=== PATIENT | female | born 1975 | race Caucasian/White ===

== ENCOUNTER 2017-06-02 15:38 | Observation (INO) | payer SELFPAY ==
[2017-06-02] VITALS (7 sets, daily range): BP systolic 100–135; BP diastolic 54–78; PULSE 61–72; RESP 16–18; TEMP 98.6; O2SAT 96–100
[~2017-06-02] VITALS: Ht 177.8 cm; Wt 125.0 kg
--- NOTE | 2017-06-02 15:54 | PD ---
Physical Exam Date Seen by Provider: Jun 02, 2017 Time Seen by Provider: 15:50 Narrative 41 YOWF C/O CP X 1WEEK. WORSE TODAY. STABBING IN THE BACK THROUGH TO THE CHEST. POS SOB, NAUSEA NO VOMITING. PAIN 9/10. H/O ANXIETY OUT OF CLON[place]APAM VS REVIEWED AWAITING BED PLACEMENT Data Data Last Documented VS Vital Signs Date Time Temp Pulse Resp B/P Pulse Ox O2 Delivery O2 Flow Rate FiO2 06/02/17 15:39 98.6 72 18 135/60 99 Room Air MDM Supervised Visit with GOLD: Antonio Merida Jun 02, 2017 15:54
[2017-06-02] MEDS ORDERED: SODIUM CHLORIDE 0.9% FLUSH 10 ML FLUSH IVF PRN (20:45)
[2017-06-02] MEDS ORDERED: ASPIRIN 81 MG CHEW TAB PO ONE (20:45)
--- NOTE | 2017-06-02 21:06 | RADRPT ---
EXAM DATE/TIME: 06/02/2017 20:58 [facility] COMPARISON: No previous studies available for comparison. INDICATIONS : Chest pain. MEDICAL HISTORY : None. SURGICAL HISTORY : None. ENCOUNTER: Initial ACUITY: 1 day PAIN SCORE: 8/10 LOCATION: Bilateral chest FINDINGS: A single view of the chest demonstrates the lungs to be symmetrically aerated without evidence of mas s, infiltrate or effusion. The cardiomediastinal contours are unremarkable. Osseous structures are intact. CONCLUSION: No evidence of acute cardiopulmonary disease. Regis Damian MD on June 02, 2017 at 21:04 Board Certified Radiologist. This report was verified electronically.
--- NOTE | 2017-06-02 21:16 | PD ---
HPI Chief Complaint: Chest Pain Time Seen by Provider: 20:44 Travel History International Travel<30 days: No Contact w/Intl Traveler<30days: No Traveled to known affect area: No History of Present Illness HPI 41-year-old female presents to the emergency department for evaluation and midsternal chest pain that started approximately a week ago, but worsened today around noon. Patient states it radiates to her back, neck, right arm. She states it is worse with deep breathing, movement, palpation. Patient states that she was seen in a hospital in [facility] approximately 6 months to one year ago and had a cardiac catheter at that time. She states she was diagnosed with coronary artery disease, but does not know any other findings with the cardiac catheterization. She has not followed up with a brand strategist due to be incarcerated. She states she was released from [facility] approximately 2 months ago. She does report history of bipolar, anxiety. She is not currently on any prescribed medications. Patient denies any recent surgery or travel. No history of cancer. No hemoptysis. She is not on control pills. No history DVT or PE. PFSH Past Medical History Bipolar Disorder: Yes Cardiac Catheterization: Yes Coronary Artery Disease: Yes Diminished Hearing: No Medical other: Yes (TUBAL LIGATION) Psychiatric: Yes (BIPOLAR) Reproductive: Yes (ENDOMETRIOSIS) Tetanus Vaccination: > 5 Years ?: Not LMP: 04/2017 Past Surgical History Gynecologic Surgery: Yes Social History Alcohol Use: No Tobacco Use: Yes Substance Use: No Allergies-Medications (Allergen,Severity, Reaction): Coded Allergies: Sulfa (Sulfonamide Antibiotics) (Verified Allergy, Severe, HIVES, 06/02/17) pseudoephedrine (Verified Allergy, Severe, HIVES, 06/02/17) triprolidine (Verified Allergy, Severe, HIVES, 06/02/17) Reported Meds & Prescriptions Reported Meds & Active Scripts Active No Active Prescriptions or Reported Medications Review of Systems Except as stated in HPI: all other systems reviewed are Neg Physical Exam Narrative GENERAL: Well-nourished, well-developed female patient, afebrile. SKIN: Focused skin assessment warm/dry. HEAD: Normocephalic. Atraumatic. EYES: No scleral icterus. No injection or drainage. NECK: Supple, trachea midline. No JVD or lymphadenopathy. CARDIOVASCULAR: Regular rate and rhythm without murmurs, gallops, or rubs. RESPIRATORY: Breath sounds equal bilaterally. No accessory muscle use. Lungs sounds are clear to auscultation. GASTROINTESTINAL: Abdomen soft, non-tender, nondistended. MUSCULOSKELETAL: No cyanosis, or edema. Midsternal chest pain is reproducible with palpation. BACK: Nontender without obvious deformity. No CVA tenderness. Data Data Last Documented VS Vital Signs Date Time Temp Pulse Resp B/P Pulse Ox O2 Delivery O2 Flow Rate FiO2 06/02/17 22:13 68 18 109/73 96 Room Air 06/02/17 15:39 98.6 Orders Electrocardiogram (06/02/17 ) Electrocardiogram (06/02/17 20:43) Basic Metabolic Panel (Bmp) (06/02/17 20:43) Ckmb (Isoenzyme) Profile (06/02/17 20:43) Complete Blood Count With Diff (06/02/17 20:43) Magnesium (Mg) (06/02/17 20:43) Prothrombin Time / Inr (Pt) (06/02/17 20:43) Act Partial Throm Time (Ptt) (06/02/17 20:43) Troponin I (06/02/17 20:43) Chest, Single Ap (06/02/17 20:43) Ecg Monitoring (06/02/17 20:43) Bilateral Bp Monitoring (06/02/17 20:43) Iv Access Insert/Monitor (06/02/17 20:43) Oximetry (06/02/17 20:43) Oxygen Administration (06/02/17 20:43) Aspirin Chew (Aspirin Chew) (06/02/17 20:45) Sodium Chloride 0.9% Flush (Ns Flush) (06/02/17 20:45) Ed Urine Pregnancytest Poc (06/02/17 20:43) CKMB (06/02/17 20:50) CKMB% (06/02/17 20:50) Admit Order (Ed Use Only) (06/02/17 22:57) Labs Laboratory Tests Test 06/02/17 20:50 Prothrombin Time 10.8 SEC Prothromb Time International 1.0 RATIO Ratio Activated Partial 25.3 SEC Thromboplast Time Sodium Level 135 MEQ/L Potassium Level 4.8 MEQ/L Chloride Level 106 MEQ/L Carbon Dioxide Level 25.5 MEQ/L Anion Gap 4 MEQ/L Blood Urea Nitrogen 12 MG/DL Creatinine 1.01 MG/DL Estimat Glomerular Filtration 61 ML/MIN Rate Random Glucose 145 MG/DL Calcium Level 8.2 MG/DL Magnesium Level 2.0 MG/DL Total Creatine Kinase 147 U/L Creatine Kinase MB 0.7 NG/ML Troponin I LESS THAN 0.02 NG/ML MDM Medical Decision Making Medical Screen Exam Complete: Yes Emergency Medical Condition: Yes Medical Record Reviewed: Yes Interpretation(s) Last Impressions Chest X-Ray 06/02/172042 Signed Impressions: Service Date/Time: Friday, June 02, 2017 20:58 - CONCLUSION: No evidence of acute cardiopulmonary disease. Regis Damian MD Differential Diagnosis ACS versus chest wall pain versus pleurisy versus anxiety Narrative Course 41-year-old female presents to the emergency department for evaluation of chest pains ongoing for a week, but worsened today. Patient reports cardiac catheterization approximately 6 months to one year ago. I will attempt to obtain these records. EKG shows sinus rhythm, heart rate 73, no acute ST changes. CBC, BMP, magnesium, CK, troponin, PTT, PT/INR, chest x-ray are ordered and pending. BMP shows no acute abnormality. Magnesium is 2.0. CK is 147. Troponin is less than 0.02. Coags are unremarkable. Chest x-ray shows no evidence of acute cardiopulmonary disease. We attempted to obtain records from previous hospital. However, they have no record of the patient being at the hospital. Patient is admitted to the [facility] for further evaluation. Diagnosis Primary Impression: Chest pain Qualified Code: R07.9 - Chest pain, unspecified type Admitting Information Admitting Physician Requests: Observation Scripts No Active Prescriptions or Reported Meds Marimar Delcid Jun 02, 2017 21:15
[2017-06-02 21:50] LABS: ANION GAP 4 MEQ/L (5-15); BICARBONATE 25.5 MEQ/L (21.0-32.0); BLOOD UREA NITROGEN 12 MG/DL (7-18); CHLORIDE 106 MEQ/L (98-107); CREATINE KINASE 147 U/L (26-192); GLOMERULAR FILTRATION RATE 61 ML/MIN (>89); POTASSIUM 4.8 MEQ/L (3.5-5.1); SODIUM (NA) 135 MEQ/L (136-145)
[2017-06-02 22:02] LABS: CKMB 0.7 NG/ML (0.5-3.6)
[2017-06-02 22:20] LABS: APTT (PATIENT) 25.3 SEC (24.3-30.1); PROTHROMBIN TIME - PATIENT 10.8 SEC (9.8-11.6)
[2017-06-02] MEDS ORDERED: SODIUM CHLORIDE 0.9% FLUSH 10 ML FLUSH IV FLUSH PRN (23:00)
[2017-06-02 23:03] LABS: AUTOMATED NEUTROPHIL # 3.4 TH/MM3 (1.8-7.7); BASOPHIL # 0.1 TH/MM3 (0-0.2); BASOPHIL % 0.7 % (0.0-2.0); EOSINOPHIL # 0.4 TH/MM3 (0-0.4); EOSINOPHIL % 5.4 % (0.0-4.0); HEMATOCRIT 36.8 % (35.0-46.0); LYMPH % 39.3 % (9.0-44.0); LYMPHOCYTE # 2.6 TH/MM3 (1.0-4.8); MEAN CELL VOLUME 93.5 FL (80.0-100.0); MEAN CORPUSCULAR HEMOGLOBIN 31.8 PG (27.0-34.0); MONO % 4.6 % (0.0-8.0); PLATELET COUNT 80 TH/MM3 (150-450); RED BLOOD COUNT 3.93 MIL/MM3 (4.00-5.30); RED CELL DISTRIBUTION WIDTH 14.6 % (11.6-17.2); WHITE BLOOD COUNT 6.7 TH/MM3 (4.0-11.0)
[2017-06-02 23:12] LABS: HEMO FLAGS AUTO DIFF
--- NOTE | 2017-06-03 00:36 | EKG ---
Date Performed: 06/02/2017 Time Performed: 15:45:38 PTAGE: 41 years EKG: Sinus rhythm POSSIBLE RIGHT VENTRICULAR CONDUCTION DELAY BORDERLINE ECG NO PREVIOUS TRACING DOCTOR: Juan Jose Bautista Interpretating Date/Time 06/03/2017 00:35:56
[2017-06-03 00:46] VITALS: PULSE 73
[2017-06-03 00:48] LABS: CREATINE KINASE 78 U/L (26-192)
[2017-06-03 00:56] LABS: PLATELET ESTIMATE SMEAR LOW (NORMAL); PLATELET MORPHOLOGY NORMAL (NORMAL); SCAN/DIFF AUTO DIFF CONFIRMED
[2017-06-03 03:39] LABS: CREATINE KINASE 78 U/L (26-192)
[2017-06-03 03:47] VITALS: BP 110/52; PULSE 63; RESP 18; TEMP 98.4; O2SAT 97
[2017-06-03 03:55] VITALS: PULSE 58
[2017-06-03 07:48] VITALS: PULSE 59
[2017-06-03 08:14] VITALS: BP 109/63; PULSE 67; RESP 20; TEMP 97.8; O2SAT 95
[2017-06-03] MEDS ORDERED: SODIUM CHLORIDE 0.9% FLUSH 10 ML FLUSH IV FLUSH SCH (09:00)
--- NOTE | 2017-06-03 10:54 | HHI.HP ---
HPI Primary Care Physician No Primary Care Physician Chief Complaint Chest pain History of Present Illness Ms. Banegas is a 41-year-old female patient with a known medical history of bipolar disorder and CAD who presented to the ED with complaints of chest pain. Patient states that about a week ago she noticed an intermittent, pressure-like and sharp pain in her midsternal chest area that has been present since. She noticed the pain worsen yesterday afternoon and characterized as a stabbing and twisting sensation that was in her midsternal area and radiated to her back. Does admit to associated shortness of breath and headache. Patient states that this pain was intermittent and lasted roughly 12 hours. Patient currently complains of chest soreness but pain has subsided. Pain somewhat reproducible to palpation. Aggravating factors include increased movement and breathing. She does state that she had an abnormal stress test and cardiac catheterization 1 year ago and required no intervention or stent placement at the time. Patient was diagnosed with CAD and per patient was not placed on any new cardiac medications. Since her cardiac catheterization she has not followed up with a PCP or scaffolding helper due to being incarcerated. Records have been obtained of prior cardiac catheterization. Review of Systems Respiratory: COMPLAINS OF: Shortness of breath Cardiovascular: COMPLAINS OF: Chest pain Past Family Social History Allergies: Coded Allergies: Sulfa (Sulfonamide Antibiotics) (Verified Allergy, Severe, HIVES, 06/02/17) pseudoephedrine (Verified Allergy, Severe, HIVES, 06/02/17) triprolidine (Verified Allergy, Severe, HIVES, 06/02/17) Past Medical History Bipolar disorder CAD Endometriosis Past Surgical History Tubal ligation Reported Medications Reported Meds & Active Scripts Active No Active Prescriptions or Reported Medications Active Ordered Medications Current Medications Medications (Trade) Dose Ordered Sig/Andrew Route Start Time Stop Time Status Last Admin (NS Flush) 2 ml UNSCH PRN IV FLUSH 06/02/17 23:00 (NS Flush) 2 ml BID IV FLUSH 06/03/17 09:00 Family History Patient cannot recall any significant family medical history of cardiovascular disease. Social History Patient states she has been smoking 1 ppd for the last 7 months. Denies any alcohol use. Denies any illicit drug use. Physical Exam Vital Signs Vital Signs Date Time Temp Pulse Resp B/P Pulse Ox O2 Delivery O2 Flow Rate FiO2 06/03/17 08:14 97.8 67 20 109/63 95 06/03/17 03:55 58 06/03/17 03:47 98.4 63 18 110/52 97 06/03/17 00:46 73 06/02/17 23:52 62 16 108/59 99 Room Air 06/02/17 23:06 21 06/02/17 22:13 68 18 109/73 96 Room Air 06/02/17 21:40 100 Room Air 06/02/17 21:30 66 18 100/78 100 Room Air 06/02/17 21:00 61 18 110/54 100 Room Air 06/02/17 20:49 18 100 Room Air 06/02/17 20:46 72 18 117/57 100 Room Air 06/02/17 20:45 100 Room Air 06/02/17 15:39 98.6 72 18 135/60 99 Room Air Physical Exam GENERAL: Well-developed, well-nourished female patient lying in bed in no apparent distress. SKIN: Warm and dry. No rash. Multiple tattoos noted. HEAD: Atraumatic. Normocephalic. EYES: Pupils equal and round. No scleral icterus. No injection or drainage. ENT: No nasal bleeding or discharge. Mucous membranes pink and moist. NECK: Trachea midline. No JVD. CARDIOVASCULAR: Regular rate and rhythm. No murmur appreciated. S1 and S2 present. RESPIRATORY: No accessory muscle use. Wheezing in bilateral lower lobes. Breath sounds equal bilaterally. GASTROINTESTINAL: Abdomen soft, non-tender, nondistended. MUSCULOSKELETAL: Extremities without clubbing, cyanosis, or edema. No obvious deformities. NEUROLOGICAL: Awake and alert. No obvious cranial nerve deficits. Motor grossly within normal limits. Five out of 5 muscle strength in the arms and legs. Normal speech. PSYCHIATRIC: Appropriate mood and affect; insight and judgment normal. Laboratory Laboratory Tests Test 06/02/17 06/02/17 06/02/17 06/03/17 20:50 21:50 23:40 02:50 Prothrombin Time 10.8 Prothromb Time International 1.0 Ratio Activated Partial 25.3 Thromboplast Time Sodium Level 135 Potassium Level 4.8 Chloride Level 106 Carbon Dioxide Level 25.5 Anion Gap 4 Blood Urea Nitrogen 12 Creatinine 1.01 Estimat Glomerular Filtration 61 Rate Random Glucose 145 Calcium Level 8.2 Magnesium Level 2.0 Total Creatine Kinase 147 78 78 Creatine Kinase MB 0.7 Troponin I LESS THAN 0.02 LESS THAN 0.02 LESS THAN 0.02 White Blood Count 6.7 Red Blood Count 3.93 Hemoglobin 12.5 Hematocrit 36.8 Mean Corpuscular Volume 93.5 Mean Corpuscular Hemoglobin 31.8 Mean Corpuscular Hemoglobin 34.0 Concent Red Cell Distribution Width 14.6 Platelet Count 80 Mean Platelet Volume 11.2 Neutrophils (%) (Auto) 50.0 Lymphocytes (%) (Auto) 39.3 Monocytes (%) (Auto) 4.6 Eosinophils (%) (Auto) 5.4 Basophils (%) (Auto) 0.7 Neutrophils # (Auto) 3.4 Lymphocytes # (Auto) 2.6 Monocytes # (Auto) 0.3 Eosinophils # (Auto) 0.4 Basophils # (Auto) 0.1 CBC Comment AUTO DIFF Differential Comment AUTO DIFF CONFIRMED Platelet Estimate LOW Platelet Morphology Comment NORMAL Result Diagram: 06/02/17214906/02/172049 Imaging Last 24 hours Impressions Chest X-Ray 06/02/172042 Signed Impressions: Service Date/Time: Friday, June 02, 2017 20:58 - CONCLUSION: No evidence of acute cardiopulmonary disease. Regis Damian MD Assessment and Plan Assessment and Plan * Atypical chest pain: Admitted to the chest pain center. Serial EKGs and troponins ordered for ruling out purposes, which are all unremarkable. Chest x- ray unremarkable. Patient seen and examined by Dr. Jiang in the chest pain center. Records obtained from previous cardiac catheterization report showing mild coronary artery disease. Will obtain a d-dimer and if normal patient will be discharged home and encouraged to follow up with PCP and scaffolding helper in the outpatient setting. Patient is stable at this time and agreeable to the plan. Archie Reid Jun 03, 2017 10:54
[2017-06-03 12:20] VITALS: BP 120/71; PULSE 59; RESP 22; TEMP 97.7; O2SAT 98
--- NOTE | 2017-06-03 13:17 | HHI.DCPOC ---
Discharge Care Plan Diagnosis: (1) Chest pain (2) Tobacco abuse Goals to Promote Your Health * To prevent worsening of your condition and complications * To maintain your health at the optimal level Directions to Meet Your Goals Take your medications as prescribed Follow your dietary instruction Follow activity as directed Keep your appointments as scheduled Take your immunizations and boosters as scheduled If your symptoms worsen call your PCP, if no PCP go to Urgent Care Center or Emergency Room Smoking is Dangerous to Your Health. Avoid second hand smoke Call the 24-hour hour crisis hotline for domestic abuse at Archie Reid Jun 03, 2017 13:17
--- NOTE | 2017-06-03 15:55 | EKG ---
Date Performed: 06/03/2017 Time Performed: 03:00:31 PTAGE: 41 years EKG: SINUS BRADYCARDIA BORDERLINE ECG PREVIOUS TRACING : 06/02/2017 23.43 Since previous tracing, no significant change noted DOCTOR: Jacinto Jiang Interpretating Date/Time 06/03/2017 15:53:39
--- NOTE | 2017-06-03 15:57 | EKG ---
Date Performed: 06/02/2017 Time Performed: 23:43:14 PTAGE: 41 years EKG: SINUS BRADYCARDIA BORDERLINE ECG PREVIOUS TRACING : 06/02/2017 15.45 Since previous tracing, no significant change noted DOCTOR: Jacinto Jiang Interpretating Date/Time 06/03/2017 15:54:32
== END 2017-06-03 13:58 | disposition home or self-care (01) ==
LOC: NEPC 15:38 → NEDA 22:58 → NEPFCDU 06-03 00:27
PROVIDERS: ADMIT Internal Medicine Interventional Cardiology; ATTEND Internal Medicine Interventional Cardiology
DX: R07.89 Other chest pain (principal); I25.10 Atherosclerotic heart disease of native coronary artery without angina pectoris; F17.210 Nicotine dependence, cigarettes, uncomplicated; F31.9 Bipolar disorder, unspecified
CPT/HCPCS: 71010; 80048; 82550; 82552; 83735; 84484; 84703; 85025; 85379; 85610; 85730; 93005; 99285; G0378

== ENCOUNTER 2017-08-20 11:03 | Emergency (ER) | payer SELFPAY ==
[~2017-08-20] VITALS: Ht 180.3 cm; Wt 145.0 kg
[2017-08-20 11:05] VITALS: BP 142/80; PULSE 87; RESP 16; TEMP 97.8; O2SAT 95
--- NOTE | 2017-08-20 11:46 | PD ---
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 Patient states that the symptoms started a month ago. Patient state abdominal pain in cramping pain diffuse over the abdomen. Patient denies any pain radiation. Patient denies fever chills. Patient denies any nausea vomiting diarrhea. Patient denies any dysuria or frequency. Patient complaining joint pain also. Patient was seen by phone circuit operator 5 months ago and had Pap smear done and it was normal. Patient has history of uterine fibroid in the past. PFSH Past Medical History Blood Disorders: No Bipolar Disorder: Yes Heart Rhythm Problems: No Cancer: No Cardiac Catheterization: Yes Cardiovascular Problems: Yes High Cholesterol: No Chest Pain: Yes Congestive Heart Failure: No Coronary Artery Disease: Yes Diabetes: No Diminished Hearing: No Endocrine: No Gastrointestinal Disorders: Yes (Umbilical hernia, gall bladder) Genitourinary: Yes (UTI, Kidney infections) Hypertension: Yes Immune Disorder: No Musculoskeletal: Yes (degenerative back disease) Neurologic: No Psychiatric: Yes Reproductive: No Respiratory: No Tetanus Vaccination: Unknown Influenza Vaccination: Yes ?: Not LMP: now- on going for a month Tubal Ligation: Yes Past Surgical History Coronary Artery Bypass Graft: No Genitourinary Surgery: Yes (KIDNEY SURGERY ) Gynecologic Surgery: Yes (TUBAL LIGATION ) Family History Family Myocardial Infarction: Yes (father) Social History Alcohol Use: No Tobacco Use: Yes (1/2 ppd) 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) Allergies-Medications (Allergen,Severity, Reaction): Coded Allergies: Sulfa (Sulfonamide Antibiotics) (Verified Allergy, Severe, HIVES, 08/20/17) pseudoephedrine (Verified Allergy, Severe, HIVES, 08/20/17) triprolidine (Verified Allergy, Severe, HIVES, 08/20/17) Reported Meds & Prescriptions Reported Meds & Active Scripts Active Ibuprofen 600 Mg Tab 600 Mg PO TID Provera (Medroxyprogesterone Acetate) 10 Mg Tab 10 Mg PO DAILY Start day 16 Review of Systems General / Constitutional: No: Fever Eyes: No: Visual changes HENT: No: Headaches Cardiovascular: No: Chest Pain or Discomfort Respiratory: No: Shortness of Breath Gastrointestinal: No: Abdominal Pain Genitourinary: No: Dysuria Musculoskeletal: No: Pain Skin: No Rash Neurologic: No: Weakness Psychiatric: No: Depression Endocrine: No: Polydipsia Hematologic/Lymphatic: No: Easy Bruising Physical Exam Narrative GENERAL: Well-nourished, well-developed patient. SKIN: Focused skin assessment warm/dry. HEAD: Normocephalic. EYES: No scleral icterus. No injection or drainage. NECK: Supple, trachea midline. No JVD or lymphadenopathy. CARDIOVASCULAR: Regular rate and rhythm without murmurs, gallops, or rubs. RESPIRATORY: Breath sounds equal bilaterally. No accessory muscle use. GASTROINTESTINAL: Abdomen soft, nondistended. Patient has mild diffuse tenderness over the abdomen. No rebound tenderness. No mass. MUSCULOSKELETAL: No cyanosis, or edema. BACK: Nontender without obvious deformity. No CVA tenderness. DIRECTOR DATA ANALYTICS exam: Patient has small mild blood in the vaginal vault. The uterus mildly enlarged with mild tenderness on palpation. No adnexal masses or tenderness. Neurologic exam normal. Data Data Last Documented VS Vital Signs Date Time Temp Pulse Resp B/P (MAP) Pulse Ox O2 Delivery O2 Flow Rate FiO2 08/20/17 11:05 97.8 87 16 142/80 (100) 95 Orders Orders Complete Blood Count With Diff (08/20/17 11:32) Comprehensive Metabolic Panel (08/20/17 11:32) Lipase (08/20/17 11:32) Iv Access Insert/Monitor (08/20/17 11:32) Ed Urine Pregnancytest Poc (08/20/17 11:32) Ed Discharge Order (08/20/17 12:51) Labs Laboratory Tests Test 08/20/17 11:40 White Blood Count 4.1 TH/MM3 Red Blood Count 4.08 MIL/MM3 Hemoglobin 13.1 GM/DL Hematocrit 38.9 % Mean Corpuscular Volume 95.5 FL Mean Corpuscular Hemoglobin 32.1 PG Mean Corpuscular Hemoglobin Concent 33.6 % Red Cell Distribution Width 14.0 % Platelet Count 76 TH/MM3 Mean Platelet Volume 10.5 FL Neutrophils (%) (Auto) 69.6 % Lymphocytes (%) (Auto) 16.3 % Monocytes (%) (Auto) 5.8 % Eosinophils (%) (Auto) 7.5 % Basophils (%) (Auto) 0.8 % Neutrophils # (Auto) 2.9 TH/MM3 Lymphocytes # (Auto) 0.7 TH/MM3 Monocytes # (Auto) 0.2 TH/MM3 Eosinophils # (Auto) 0.3 TH/MM3 Basophils # (Auto) 0.0 TH/MM3 CBC Comment AUTO DIFF Blood Urea Nitrogen 13 MG/DL Creatinine 0.93 MG/DL Random Glucose 85 MG/DL Total Protein 7.3 GM/DL Albumin 3.6 GM/DL Calcium Level 8.5 MG/DL Alkaline Phosphatase 94 U/L Aspartate Amino Transf (AST/SGOT) 75 U/L Alanine Aminotransferase (ALT/SGPT) 65 U/L Total Bilirubin 0.5 MG/DL Sodium Level 136 MEQ/L Potassium Level 4.4 MEQ/L Chloride Level 107 MEQ/L Carbon Dioxide Level 28.6 MEQ/L Anion Gap 0 MEQ/L Estimat Glomerular Filtration Rate 67 ML/MIN Lipase 180 U/L MDM Medical Decision Making Medical Screen Exam Complete: Yes Emergency Medical Condition: Yes Interpretation(s) 12:39 PM. CBC WBC within normal limit. CMP within normal limit. AST 75. ALT 65. Urine test negative. Differential Diagnosis Differential diagnosis including dysmenorrhea, menorrhagia, fibroid uterus, anemia, electrolyte abnormality, dehydration. Narrative Course 41-year-old female with abdominal pain and vaginal bleeding for the past month. Diagnosis Primary Impression: Menorrhagia Qualified Codes: N92.0 - Excessive and frequent menstruation with regular cycle Additional Impression: Dysmenorrhea Patient Instructions: General Instructions Additional Instructions: Take medication as directed. Follow-up with phone circuit operator. Med/Other Pt SpecificInfo: Prescription(s) given Scripts Ibuprofen (Ibuprofen) 600 Mg Tab 600 MG PO TID for Pain, #30 TAB 0 Refills Prov: Danny Godinez MD 08/20/17 Medroxyprogesterone Acetate (Provera) 10 Mg Tab 10 MG PO DAILY for Uterine bleeding, #10 TAB 0 Refills Start day 16 Prov: Danny Godinez MD 08/20/17 Disposition: 01 DISCHARGE HOME Condition: Stable Danny Godinez MD Aug 20, 2017 11:46
[2017-08-20 12:01] LABS: AUTOMATED NEUTROPHIL # 2.9 TH/MM3 (1.8-7.7); BASOPHIL % 0.8 % (0.0-2.0); EOSINOPHIL # 0.3 TH/MM3 (0-0.4); EOSINOPHIL % 7.5 % (0.0-4.0); HEMATOCRIT 38.9 % (35.0-46.0); LYMPH % 16.3 % (9.0-44.0); LYMPHOCYTE # 0.7 TH/MM3 (1.0-4.8); MEAN CELL VOLUME 95.5 FL (80.0-100.0); MEAN CORPUSCULAR HEMOGLOBIN 32.1 PG (27.0-34.0); MEAN CORPUSCULAR HGB CONC 33.6 % (32.0-36.0); MONO % 5.8 % (0.0-8.0); NEUT % 69.6 % (16.0-70.0); PLATELET COUNT 76 TH/MM3 (150-450); RED BLOOD COUNT 4.08 MIL/MM3 (4.00-5.30); WHITE BLOOD COUNT 4.1 TH/MM3 (4.0-11.0)
[2017-08-20 12:03] LABS: HEMO FLAGS AUTO DIFF
[2017-08-20 12:10] LABS: ALT (GPT) 65 U/L (10-53); ANION GAP 0 MEQ/L (5-15); BICARBONATE 28.6 MEQ/L (21.0-32.0); CHLORIDE 107 MEQ/L (98-107); GLOMERULAR FILTRATION RATE 67 ML/MIN (>89); POTASSIUM 4.4 MEQ/L (3.5-5.1); SODIUM (NA) 136 MEQ/L (136-145)
[2017-08-20 12:27] LABS: ALKALINE PHOSPHATASE 94 U/L (45-117); AST (GOT) 75 U/L (15-37); BLOOD UREA NITROGEN 13 MG/DL (7-18); TOTAL BILIRUBIN ADULT 0.5 MG/DL (0.2-1.0)
[2017-08-20] MEDS ORDERED: IBUP-232 PO (12:43)
[2017-08-20] MEDS ORDERED: PROV10TA PO (12:43)
[2017-08-20 13:09] LABS: PLATELET ESTIMATE SMEAR LOW (NORMAL); PLATELET MORPHOLOGY NORMAL (NORMAL); SCAN/DIFF AUTO DIFF CONFIRMED
== END 2017-08-20 13:27 | disposition home or self-care (01) ==
LOC: NEPD 11:03
DX: N92.0 Excessive and frequent menstruation with regular cycle (principal); N94.6 Dysmenorrhea, unspecified; M25.50 Pain in unspecified joint; I10 Essential (primary) hypertension; F17.200 Nicotine dependence, unspecified, uncomplicated; Z86.59 Personal history of other mental and behavioral disorders; Z86.79 Personal history of other diseases of the circulatory system; Z87.19 Personal history of other diseases of the digestive system; Z87.448 Personal history of other diseases of urinary system; Z87.39 Personal history of other diseases of the musculoskeletal system and connective tissue
CPT/HCPCS: 80053; 83690; 84703; 85025; 99283

== ENCOUNTER 2017-10-05 06:17 | Emergency (ER) | payer SELFPAY ==
[~2017-10-05] VITALS: Ht 180.3 cm; Wt 130.0 kg
[~2017-10-05 06:17] MED LIST: IBUP-232 PO; PROV10TA PO
[2017-10-05 06:19] VITALS: BP 132/76; PULSE 95; RESP 18; TEMP 99; O2SAT 100
[2017-10-05] MEDS ORDERED: ERYTOIN10 EACH EYE (07:30)
--- NOTE | 2017-10-05 07:31 | PD ---
HPI . Eye irritation Chief Complaint: Allergic/Adverse Reaction Time Seen by Provider: 07:25 Travel History International Travel<30 days: No Contact w/Intl Traveler<30days: No Traveled to known affect area: No History of Present Illness HPI This patient presents with a chief complaint of bilateral eye irritation, right worse than left. Onset was about midnight. She reports copious purulent drainage from her eyes. Her right eye is red. She is unaware of any modifying factors. Symptoms are severe. No related symptoms. Treatment prior to arrival included warm compresses and cool compresses which provided mild, temporary relief. PFSH Past Medical History Blood Disorders: No Bipolar Disorder: Yes Heart Rhythm Problems: No Cancer: No Cardiac Catheterization: Yes Cardiovascular Problems: Yes High Cholesterol: No Chest Pain: Yes Congestive Heart Failure: No Coronary Artery Disease: Yes Diabetes: No Diminished Hearing: No Endocrine: No Gastrointestinal Disorders: Yes (Umbilical hernia, gall bladder) Genitourinary: Yes Hypertension: Yes Immune Disorder: No Musculoskeletal: Yes (degenerative back disease) Neurologic: No Psychiatric: Yes Reproductive: Yes (ENDOMETREOSIS) Respiratory: No ?: Not Tubal Ligation: Yes Past Surgical History Coronary Artery Bypass Graft: No Genitourinary Surgery: Yes (KIDNEY SURGERY ) Gynecologic Surgery: Yes (ABLASION FOR ENDOMETREOSIS) Other Surgery: Yes Family History Family Myocardial Infarction: Yes (father) Social History Alcohol Use: No Tobacco Use: Yes (1/2 ppd) 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) Allergies-Medications (Allergen,Severity, Reaction): Coded Allergies: Sulfa (Sulfonamide Antibiotics) (Verified Allergy, Severe, HIVES, 10/05/17 ) pseudoephedrine (Verified Allergy, Severe, HIVES, 10/05/17) triprolidine (Verified Allergy, Severe, HIVES, 10/05/17) Reported Meds & Prescriptions Reported Meds & Active Scripts Active Ibuprofen 600 Mg Tab 600 Mg PO TID Provera (Medroxyprogesterone Acetate) 10 Mg Tab 10 Mg PO DAILY Start day 16 Review of Systems Except as stated in HPI: all other systems reviewed are Neg General / Constitutional: No: Fever, Chills Eyes: Positive: Blurred Vision, Drainage, Redness Physical Exam Narrative GENERAL: Awake and alert and in no acute distress. SKIN: Warm and dry. HEAD: Normocephalic/atraumatic. EYES: Copious mucopurulent drainage from both eyes. The right eye is injected. Corneas are clear. NECK: Normal range of motion. CARDIOVASCULAR: Regular rate and rhythm. RESPIRATORY: Nonlabored respirations. MUSCULOSKELETAL: Atraumatic. NEUROLOGICAL: Nonfocal. PSYCHIATRIC: Appropriate mood and affect. Data Data Last Documented VS Vital Signs Date Time Temp Pulse Resp B/P (MAP) Pulse Ox O2 Delivery O2 Flow Rate FiO2 10/05/17 06:19 99.0 95 18 132/76 (94) 100 Room Air MDM Medical Decision Making Medical Screen Exam Complete: Yes Emergency Medical Condition: Yes Differential Diagnosis Differential diagnosis of eye pain includes but is not limited to conjunctivitis , chemical irritation, corneal abrasion, acute angle-closure glaucoma. Narrative Course This patient presents with the acute onset of bilateral eye irritation with copious mucopurulent drainage. She will be treated for conjunctivitis with erythromycin ophthalmic ointment. She will be instructed to take Benadryl as needed for itching and swelling. Cool compresses for swelling. Diagnosis Primary Impression: Acute conjunctivitis, bilateral Qualified Codes: H10.33 - Unspecified acute conjunctivitis, bilateral Patient Instructions: Conjunctivitis (DC), General Instructions Additional Instructions: Benadryl 2 every 4 hours as needed for itching and swelling. Cool compresses to your eyes for swelling. Med/Other Pt SpecificInfo: Prescription(s) given Scripts Erythromycin Opth Oint (Erythromycin Opth Oint) 5 Mg/Gm Oint 1 APPLIC EACH EYE QID for Infection for 5 Days, #1 TUBE 0 Refills Prov: Veronica Chang MD 10/05/17 Disposition: 01 DISCHARGE HOME Condition: Stable Veronica Chang MD Oct 05, 2017 07:31
== END 2017-10-05 08:00 | disposition home or self-care (01) ==
LOC: NEPE 06:17
DX: H10.33 Unspecified acute conjunctivitis, bilateral (principal); F17.200 Nicotine dependence, unspecified, uncomplicated
CPT/HCPCS: 99283